=== PATIENT | male | born 1970 | race Caucasian/White ===

== ENCOUNTER → 2019-12-22 08:26 | Outpatient (CLI) | payer MEDICAID | END | disposition home or self-care (01) | LOC: D.NM 08:26 | PROVIDERS: ATTEND Internal Medicine Gastroenterology | DX: R10.11 Right upper quadrant pain (principal) ==

== ENCOUNTER → 2020-01-27 14:18 | Outpatient (CLI) | payer MEDICAID | END | disposition home or self-care (01) | LOC: D.CT 14:18 | PROVIDERS: ATTEND Internal Medicine Hematology & Oncology | DX: C18.7 Malignant neoplasm of sigmoid colon (principal); R10.11 Right upper quadrant pain ==

== ENCOUNTER 2020-02-01 07:41 | Inpatient (IN) | payer MEDICAID ==
[~2020-02-01] VITALS: Ht 190.5 cm; Wt 109.8 kg
[2020-02-01] MEDS ORDERED: GLUCOPHAGE1000 MG PO (10:05)
[2020-02-01] MEDS ORDERED: PRAVACHOL20 MG PO (10:06)
[2020-02-01] MEDS ORDERED: NEURONTIN600 MG PO (10:06)
[2020-02-01] MEDS ORDERED: HYDROCODON-ACE1 EA10 PO (10:06)
[2020-02-01] MEDS ORDERED: AMBIEN10 MG PO (10:07)
[2020-02-01] MEDS ORDERED: GLUCOTROL 5 MG T5 MG PO (10:07)
[2020-02-01] MEDS ORDERED: OMEPRAZOLE20 M1 PO (10:07)
[2020-02-01] MEDS ORDERED: CYCLOBENZAPRINE10 MG PO (10:08)
[2020-02-01] MEDS ORDERED: KLONOPIN1 MG PO (10:09)
[2020-02-03] VITALS (8 sets, daily range): BP systolic 107–139; BP diastolic 63–75; BMI 29.9; BMI 30.3
[2020-02-03 09:32] LABS: HEMATOCRIT 46.1 % (42.0-54.0); HEMOGLOBIN 16.2 g/dL (13.5-17.5); LYMPHOCYTES 26.1 % (15-50); MCH 29.9 pg (26.0-34.0); MCHC 35.1 g/dL (31.0-37.0); MCV 85.1 fL (80.0-100.0); MEAN PLATELET VOLUME 7.7 fL (7.4-10.4); NEUTROPHILS 63.4 % (40-80); PLATELET COUNT 197 10x3/uL (130-400); RBC 5.42 10x6/uL (4.20-6.10); RDW 13.1 % (11.5-14.5); WBC 4.9 10x3/uL (4.8-10.8)
[2020-02-03 09:45] LABS: ANION GAP 10.6 mmol/L (8-16); CALCIUM 9.3 mg/dL (8.5-10.1); CARBON DIOXIDE 30.2 mmol/L (21.0-32.0); CREATININE - SERUM 1.2 mg/dL (0.6-1.3); POTASSIUM - SERUM 4.8 mmol/L (3.5-5.1)
[2020-02-03 10:36] LABS: APTT 28.8 SECONDS (22.8-39.4); INR 1.04 (0.85-1.17); PROTIME 13.6 SECONDS (11.6-15.0)
[2020-02-03] MEDS ORDERED: FLAGYL500 MG (10:46)
[2020-02-03] MEDS ORDERED: NEOMYCIN SULFA500 MG (10:46)
[2020-02-03] MEDS ORDERED: AMOXICILLIN500 M1 (10:47)
--- NOTE | 2020-02-03 16:23 | NUR ---
1624 OPA DISCONTINUED. PATIENT AROUSES SLIGHTLY. MAINTAINING OPEN AIRWAY
--- NOTE | 2020-02-03 17:32 | NUR ---
PT ARRIVES TO ROOM VIA BED ESCORTED BY RECOVERY ROOM STAFF. PT IS SLEEPY AND AROUSES TO VOICE BUT DOES NOT ANSWER ALL QUESTIONS APPROPRIATELY. PT IS ORIENTED TO SELF/PLACE/SITUATION. PT STATES THAT HE HAS FAMILY IN THE HOSPITAL, BUT NO FAMILY HAS BEEN FOUND AT THIS TIME. WILL COMPLETE ALL ADMISSION REQUIREMENTS THAT CAN BE COMPLETED AT THIS TIME. VSS. SEE FLOWSHEET. ALL FALL PRECAUTIONS ARE IN PLACE EXCEPT FOR YELLOW GOWN. VALENTINO ALARM IS ON AND WORKING. INCENTIVE SPIROMETER AT BEDSIDE. CONTINUOUS PULSE OX IN PLACE AND MONITORING. EPIDURAL INPLACE AND INFUSING WITHOUT DIFFICULTY. BED IS IN THE LOWEST POSITION. CALL LIGHT AND BEDSIDE TABLE ARE WITHIN REACH. SIDE RAILS X 2. PT DENIES FURTHER NEEDS. WILL CONT TO MONITOR AND AWAIT FAMILY TO COMPLETE ADMISSION REQUIREMENTS.
[2020-02-03 18:38] LABS: BASOPHILS 0 % (0-2); EOSINOPHILS 0.1 % (0-7); HEMATOCRIT 40.3 % (42.0-54.0); HEMOGLOBIN 14.2 g/dL (13.5-17.5); IMMATURE GRANULOCYTES 0.1 % (0-5); LYMPHOCYTES 4.5 % (15-50); MCH 30.5 pg (26.0-34.0); MCHC 35.2 g/dL (31.0-37.0); MCV 86.7 fL (80.0-100.0); MEAN PLATELET VOLUME 8.3 fL (7.4-10.4); MONOCYTES 5.6 % (2-11); NEUTROPHILS 89.7 % (40-80); RBC 4.65 10x6/uL (4.20-6.10); RDW 12.6 % (11.5-14.5)
[2020-02-03 18:53] LABS: PLATELET COUNT 151 10x3/uL (130-400)
[2020-02-03 19:04] LABS: ALBUMIN 3.6 g/dL (3.4-5.0); ALKALINE PHOSPHATASE 49 U/L (30-120); ALT (SGPT) 37 U/L (10-68); BILIRUBIN - TOTAL 0.76 mg/dL (0.2-1.3); CALC OSMOLALITY 277 mosm/kg (275-300); CALCIUM 8.2 mg/dL (8.5-10.1); CARBON DIOXIDE 24.9 mmol/L (21.0-32.0); CHLORIDE - SERUM 107 mmol/L (98-107); GLUCOSE 123 mg/dL (74-106); MAGNESIUM - SERUM 1.7 mg/dL (1.8-2.4); PHOSPHOROUS 3.8 mg/dL (2.5-4.9); POTASSIUM - SERUM 4.4 mmol/L (3.5-5.1); PROTEIN - SERUM 6.6 g/dL (6.4-8.2); SODIUM 140 mmol/L (136-145); UREA NITROGEN 8 mg/dL (7-18); eGFR NON AFRICAN AMERICAN 84 mL/min (90-120)
--- NOTE | 2020-02-03 19:05 | NUR ---
PATIENT ALERT AND ORIENTED. HOB ELEVATED 40 DEGREE ANGLE. PATIENT HAS AN INTRACATHETER EPIDURAL THAT IS ON AND INFUSING. PATIENT STATES PAIN IS CURRENTLY 5/10. PATIENT STATES THAT INCISION PAIN IS "OKAY" BUT THAT HE SUFFERS FROM CHRONIC BACK PAIN AND THAT'S THE MAIN THING THAT IS STARTING TO BOTHER HIM AT THIS TIME. CONTINUOUS MONITORING IN PLACE. PATIENT WEARING 2L NC. HAS LEFT HAND IV THAT IS INFUSING NS @ 100. WEAVER CATHETER DRAINING YELLOW URINE. CALL LIGHT IN REACH. CPOC.
--- NOTE | 2020-02-03 23:51 | NUR ---
PAGED ANESTHESIA TO ASK ABOUT PAIN MEDICINE. PATIENT COMPLAINING OF BACK PAIN, NOT INCISION PAIN. ORDER STATES NO NARCOTICS AT THIS TIME DUE TO EPIDURAL BUT PATIENT COMPLAINING OF BACK PAIN
--- NOTE | 2020-02-04 00:20 | NUR ---
RECEIVED RETURN CALLED FROM LUIS MANUEL PRITCHETT CRNA. RECEIVED ORDER THAT IT IS OKAY TO ADMINISTER OXYCODONE THAT IS ON EMAR.
[2020-02-04 00:35] VITALS: BP 118/68
--- NOTE | 2020-02-04 03:18 | NUR ---
I have reviewed this patient and I concur with the Shift Assessment completed by the Licensed Practical Nurse today this shift.
[2020-02-04 04:55] VITALS: BP 118/64
[2020-02-04 04:57] LABS: BASOPHILS 0.2 % (0-2); EOSINOPHILS 0.2 % (0-7); HEMATOCRIT 37.5 % (42.0-54.0); HEMOGLOBIN 13.2 g/dL (13.5-17.5); IMMATURE GRANULOCYTES 0.2 % (0-5); LYMPHOCYTES 18.2 % (15-50); MCH 30.5 pg (26.0-34.0); MCHC 35.2 g/dL (31.0-37.0); MCV 86.6 fL (80.0-100.0); MEAN PLATELET VOLUME 8.1 fL (7.4-10.4); MONOCYTES 13.5 % (2-11); NEUTROPHILS 67.7 % (40-80); PLATELET COUNT 147 10x3/uL (130-400); RBC 4.33 10x6/uL (4.20-6.10); RDW 12.6 % (11.5-14.5)
[2020-02-04 05:18] LABS: CALC OSMOLALITY 275 mosm/kg (275-300); CALCIUM 7.9 mg/dL (8.5-10.1); CARBON DIOXIDE 27.3 mmol/L (21.0-32.0); CHLORIDE - SERUM 104 mmol/L (98-107); CREATININE - SERUM 1.1 mg/dL (0.6-1.3); GLUCOSE 100 mg/dL (74-106); MAGNESIUM - SERUM 1.7 mg/dL (1.8-2.4); POTASSIUM - SERUM 4.2 mmol/L (3.5-5.1); SODIUM 139 mmol/L (136-145); UREA NITROGEN 8 mg/dL (7-18); eGFR NON AFRICAN AMERICAN 75 mL/min (90-120)
--- NOTE | 2020-02-04 07:10 | NUR ---
PT RESTING IN BED. NO SIGNS OF DISTRESS. IV TO LEFT HAND PATENT NO REDNESS OR TENDERNESS. ON 2L NC. HAS EPIDURAL PATENT. INCISION TO ABDOMEN DRESSING CLEAN AND INTACT. COMPLIANS OF HEADACHE. MEDICATIONS GIVEN. HAS WEAVER NO KINKS PATENT. DENIES ANY FURTHER NEED AT THIS TIME. CALL LIGHT IN REACH. BED LOW POSITION. NO FAMILY AT BEDSIDE AT THIS TIME.
[2020-02-04 09:52] VITALS: BP 108/72
[2020-02-04 12:14] LABS: BILIRUBIN NEGATIVE (NEGATIVE); GLUCOSE NEGATIVE (NEGATIVE); KETONE NEGATIVE (NEGATIVE); NITRITE NEGATIVE (NEGATIVE); SPECIFIC GRAVITY 1.005 (1.005-1.020); UROBILINOGEN NORMAL (NORMAL)
--- NOTE | 2020-02-04 14:00 | NUR ---
I have reviewed this patient and I concur with the Shift Assessment completed by the Licensed Practical Nurse today this shift.
[2020-02-04 14:10] VITALS: Ht 190.5 cm; Wt 109.8 kg
[2020-02-04 14:24] VITALS: BP 110/68
[2020-02-04 16:56] VITALS: BP 104/61
[2020-02-04 20:00] VITALS: BP 117/60
--- NOTE | 2020-02-04 20:00 | NUR ---
PATIENT RESTING IN BED WITH EYES OPEN. NO S/S OF DISTRESS. C/O NOT BEING ABLE TO SLEEP, AND DOCTOR CAROL WAS CALLED. PATIENT HAS AN IV IN LEFT HAND NORMAL SALINE @ 100 ML/HR. IV IS PATENT WITHOUT REDNESS, SWELLING, OR TENDERNESS. PATIENT HAS 2L OF O2 PRN AND IS ON CONTINUOUS O2 MONIORING. PATIENT IS POST OP DAY 1 WITH A MIDLINE INCISION AND 2 LAP SITES. ALL DRESSINGS ARE C/D/I. PATIENT HAS EPIDURAL, DRESING IS C/D/I. PATIENT HAS A WEAVER. CALL LIGHT IN PLACE. WILL CONTINUE TO MONITOR.
--- NOTE | 2020-02-04 20:50 | NUR ---
PATIENT HAS TAKEN OUT EPIDURAL, AND ANET[facility] WAS CALLED. DRESSING IS STILL INTACT AND PATIENT IS NOW LAYING ON LEFT SIDE. CALL LIGHT IN PLACE. WILL CONTINUE TO MONITOR.
--- NOTE | 2020-02-04 21:20 | NUR ---
EPIDURAL WAS TAKEN OUT BY ANETHS[facility]. CATHETER TIP IN PLACE. DOCTOR CAROL WAS CALLED AND MORPHINE BLOW MOLD TECHNICIAN WAS ORDERED AND PUT IN PLACE. CALL LIGHT IN PLACE. WILL CONTINUE TO MONITOR.
[2020-02-05] VITALS: BP 113/71
--- NOTE | 2020-02-05 03:00 | NUR ---
I have reviewed this patient and I concur with the Shift Assessment completed by the Licensed Practical Nurse today this shift.
[2020-02-05 04:00] VITALS: BP 115/70
[2020-02-05 06:40] LABS: BASOPHILS 0.2 % (0-2); EOSINOPHILS 2.1 % (0-7); HEMATOCRIT 34.8 % (42.0-54.0); IMMATURE GRANULOCYTES 0.2 % (0-5); LYMPHOCYTES 27.9 % (15-50); MCH 30.1 pg (26.0-34.0); MCHC 34.5 g/dL (31.0-37.0); MCV 87.2 fL (80.0-100.0); MEAN PLATELET VOLUME 8.3 fL (7.4-10.4); MONOCYTES 11.3 % (2-11); NEUTROPHILS 58.3 % (40-80); PLATELET COUNT 147 10x3/uL (130-400); RBC 3.99 10x6/uL (4.20-6.10); RDW 12.6 % (11.5-14.5); WBC 4.8 10x3/uL (4.8-10.8)
[2020-02-05 07:08] LABS: CALC OSMOLALITY 265 mosm/kg (275-300); CALCIUM 8.1 mg/dL (8.5-10.1); CARBON DIOXIDE 26.9 mmol/L (21.0-32.0); CHLORIDE - SERUM 101 mmol/L (98-107); GLUCOSE 91 mg/dL (74-106); MAGNESIUM - SERUM 1.9 mg/dL (1.8-2.4); PHOSPHOROUS 2.8 mg/dL (2.5-4.9); POTASSIUM - SERUM 3.6 mmol/L (3.5-5.1); SODIUM 134 mmol/L (136-145); UREA NITROGEN 8 mg/dL (7-18); eGFR NON AFRICAN AMERICAN 84 mL/min (90-120)
[2020-02-05 08:38] VITALS: BP 114/73
[2020-02-05 12:33] VITALS: BP 112/71
[2020-02-05 17:07] VITALS: BP 100/62
--- NOTE | 2020-02-05 19:05 | NUR ---
PATIENT ALERT AND ORIENTED. VISITNG FAMILY IN ROOM. DENIES NEEDS AT THIS TIME. CALL LIGHT IN REACH. CPOC.
[2020-02-05 20:00] VITALS: BP 136/88
[2020-02-06] VITALS: BP 107/56
--- NOTE | 2020-02-06 00:15 | NUR ---
PATIENT HAD BOWEL MOVEMENT. BRIGHT RED BLOOD NOTED. PATIENT STATES THAT THIS IS "NORMAL" FOR HIM DUE TO EXTERNAL HEMORRHOIDS. PATIENT STATES PAIN MEDICATION IS EFFECTIVE AT THIS TIME. PATIENT STATES THAT BOWEL MOVEMENT WAS SMALL BUT EASY TO PASS WITH NO EXCESSIVE STRAINING. DENIES FURTHER NEEDS AT THIS TIME. CPOC.
--- NOTE | 2020-02-06 01:47 | NUR ---
RESTING WITH NO SIGNS OR SYMPTOMS OF DISCOMFORT AT THIS TIME. CALL LIGHT IN REACH. CPOC.
--- NOTE | 2020-02-06 01:49 | NUR ---
I have reviewed this patient and I concur with the Shift Assessment completed by the Licensed Practical Nurse today this shift.
--- NOTE | 2020-02-06 03:19 | NUR ---
DC'D IV TO THE LEFT HAND DUE TO NO LONGER PATENT. RESITED IN THE RIGHT AC. CHANGED OUT TUBING PER PROTOCAL. CPOC.
[2020-02-06 04:00] VITALS: BP 117/66
[2020-02-06 04:46] LABS: BASOPHILS 0.2 % (0-2); EOSINOPHILS 4.2 % (0-7); HEMATOCRIT 32.3 % (42.0-54.0); HEMOGLOBIN 11.2 g/dL (13.5-17.5); IMMATURE GRANULOCYTES 0.2 % (0-5); LYMPHOCYTES 31.4 % (15-50); MCH 29.9 pg (26.0-34.0); MCHC 34.7 g/dL (31.0-37.0); MCV 86.4 fL (80.0-100.0); MEAN PLATELET VOLUME 8.2 fL (7.4-10.4); MONOCYTES 11.5 % (2-11); NEUTROPHILS 52.5 % (40-80); PLATELET COUNT 140 10x3/uL (130-400); RBC 3.74 10x6/uL (4.20-6.10); RDW 12.6 % (11.5-14.5); WBC 4.3 10x3/uL (4.8-10.8)
[2020-02-06 05:36] LABS: CALC OSMOLALITY 275 mosm/kg (275-300); CARBON DIOXIDE 27.5 mmol/L (21.0-32.0); CHLORIDE - SERUM 106 mmol/L (98-107); GLUCOSE 96 mg/dL (74-106); MAGNESIUM - SERUM 1.8 mg/dL (1.8-2.4); PHOSPHOROUS 3.3 mg/dL (2.5-4.9); SODIUM 139 mmol/L (136-145); UREA NITROGEN 8 mg/dL (7-18); eGFR NON AFRICAN AMERICAN 84 mL/min (90-120)
--- NOTE | 2020-02-06 08:39 | NUR ---
PATIENT STATES BM LAST NIGHT AND GAS. REQUESTED AND RECIEVED A POPSICLE. CL IN REACH. WCTM
[2020-02-06 08:56] VITALS: BP 116/65
--- NOTE | 2020-02-06 13:15 | MORECARE ---
CASE MANAGEMENT DISCHARGE SUMMARY PATIENT: DELANO ATKINSON UNIT: [id number] ADM DATE: 02/03/20 AGE: 49 : 70 SEX: M ROOM/BED: D.2206 AUTHOR: KENNET[place]OC PHYSICIAN: REFERRING PHYSICIAN: DARIO HOPPER MD DATE OF SERVICE: 02/06/20 Discharge Plan Patient Name: DELANO ATKINSON Facility: [facility]:[place] : 1970 Planned Disposition: Home or Self Care Anticipated Discharge Date: Discharge Date: Expected LOS: Initial Reviewer: [email or web address] Initial Review Date: 02/03/2020 Generated: 02/06/20 2:15 pm Comments DCP- Discharge Planning Updated by [email or web address]: Angelic Martinez on 02/06/20 12:[address] Patient Name: DELANO ATKINSON Admission Status: Elective Accout number: [id number] Admission Date: 02-03-2020 : 1970 Admission Diagnosis: Attending: DARIO HOPPER Current LOS: 3 Anticipated DC Date: Planned Disposition: Home or Self Care Primary Insurance: MEDICAID [place] Discharge Planning Comments: CM met with patient to complete initial dc planning assessment. CM educated patient on the CM role and verbal consent given by patient to complete assessment. Patient lives at home with his parents where he is independent with his care. At discharge patient plans to return home and feels this is a safe discharge. CM discussed availability of home health, rehab services, and medical equipment. Patient denied known discharge needs at this time. CM will continue to follow and will assist as needed with dc plans/needs. Field Technical Support Consultant: Angelic Martinez DCPIA - Discharge Planning Initial Assessment Updated by [id number]: Angelic Martinez on 02/06/20 1:11 pm * Is the patient Alert and Oriented? Yes * How many steps to enter\exit or inside your home? * PCP [facility] * Pharmacy [facility] * Preadmission Environment Home with Family * ADLs Independent * Equipment None * List name and contact numbers for known caregivers / representatives who currently or will assist patient after discharge: LÁZARO ORR [phone] * Verbal permission to speak to the caregivers and representatives has been obtained from the patient. N/A * Community resources currently utilized None * Additional services required to return to the preadmission environment? No * Can the patient safely return to the preadmission environment? Yes * Has this patient been hospitalized within the prior 30 days at any hospital? No Patient Name: DELANO ATKINSON Page [id number] at 1315 All edits/amendments must be made on the electronic document DICTATION DATE: 02/06/201314 SOUND EFFECTS SUPERVISOR: ALICIA 02/06/20 1315 RPT#: [id number] DC DATE: STATUS: ADM IN [facility] [address] [place] [address] END OF REPORT
[2020-02-06 13:24] VITALS: BP 117/86
--- NOTE | 2020-02-06 15:21 | NUR ---
PATIENT SL AT THIS TIME BECAUSE HE WANTS A NAP. IV THERAPY WAS MAKING A "CLICKING NOISE" CL IN REACH. TM
[2020-02-06 17:28] VITALS: BP 138/60
--- NOTE | 2020-02-06 19:00 | NUR ---
BEDSIDE REPORT RECEIVED AND CARE OF PT ASSUMED. PT LYING IN HIGH NICOL[place]'S POSTION WATCHING TV. IV TO RIGHT AC SALINE LOCKED. WILL MONITOR FOR NEEDS.
[2020-02-06 20:00] VITALS: BP 125/68
--- NOTE | 2020-02-06 20:45 | NUR ---
HS MEDICATIONS GIVEN. WILL CONTINUE TO MONITOR FOR NEEDS.
--- NOTE | 2020-02-06 20:50 | NUR ---
PAGED DR MEDINA PER PT REQUEST FOR AMBIEN 10 MG PO FOR SLEEP...PT TAKES THIS AT HOME.
--- NOTE | 2020-02-06 22:05 | NUR ---
GAVE AMBIEN 10 MG PO PER NEW ORDER. WILL CONTINUE TO MONITOR FOR NEEDS.
[2020-02-07] VITALS: BP 140/81
[2020-02-07 04:00] VITALS: BP 133/78
--- NOTE | 2020-02-07 04:33 | NUR ---
GAVE NORCO PO PER REQUEST FOR PAIN.
[2020-02-07 06:33] LABS: HEMATOCRIT 32.4 % (42.0-54.0); HEMOGLOBIN 11.7 g/dL (13.5-17.5); MCH 30.2 pg (26.0-34.0); MCHC 36.1 g/dL (31.0-37.0); PLATELET COUNT 156 10x3/uL (130-400); RBC 3.87 10x6/uL (4.20-6.10); RDW 12.4 % (11.5-14.5); WBC 4.6 10x3/uL (4.8-10.8)
[2020-02-07 06:37] LABS: MCV 83.7 fL (80.0-100.0)
[2020-02-07 07:10] LABS: CALC OSMOLALITY 275 mosm/kg (275-300); CALCIUM 8.3 mg/dL (8.5-10.1); CARBON DIOXIDE 25.1 mmol/L (21.0-32.0); CHLORIDE - SERUM 104 mmol/L (98-107); CREATININE - SERUM 0.8 mg/dL (0.6-1.3); GLUCOSE 92 mg/dL (74-106); MAGNESIUM - SERUM 1.7 mg/dL (1.8-2.4); PHOSPHOROUS 3.5 mg/dL (2.5-4.9); POTASSIUM - SERUM 3.7 mmol/L (3.5-5.1); SODIUM 139 mmol/L (136-145); UREA NITROGEN 7 mg/dL (7-18); eGFR NON AFRICAN AMERICAN > 90 mL/min (90-120)
[2020-02-07 09:12] LABS: EOSINOPHILS 7 % (0-7); LYMPHOCYTES 23 % (15-50); MONOCYTES 11 % (2-11); NEUTROPHILS 58 % (40-80); PLATELET ESTIMATE NORMAL
--- NOTE | 2020-02-07 09:56 | NUR ---
PT ALERT X 4. BREATH SOUNDS CLEAR BILAT. IV TO RIGHT AC, PATENT, DRESSING CDI. PT REPORTING PAIN OF 6/10, WILL MONITOR. INCISION TO LOWER ABDOMEN CDI. BED LOW, CALL LIGHT IN REACH. NO OTHER NEEDS AT THIS TIME.
[2020-02-07 10:07] VITALS: BP 133/74
--- NOTE | 2020-02-07 14:24 | OP ---
PATIENT NAME: DELANO ATKINSON MEDICAL RECORD: [id number] :[birth year] LOCATION:D.MS [id number] ADMISSION DATE:02/03/20 SURGEON: DARIO HOPPER MD DATE OF OPERATION: 02/03/2020 PREOPERATIVE DIAGNOSIS: Sigmoid colon cancer, tattooed. POSTOPERATIVE DIAGNOSES: Sigmoid colon cancer, tattooed. PROCEDURE: 1. Hand-assisted laparoscopic surgery -- sigmoid colectomy, with takedown of the splenic flexure. 2. Incidental appendectomy. SURGEON: Dario Hopper MD EXPORT FREIGHT MANAGER: None. BLOOD LOSS: 100 cc. ANESTHESIA: General. COMPLICATIONS: None. The risks, possible complications, and alternatives to the procedure were explained to the patient. He elects to proceed. The discussion specifically included, but was not limited to, bleeding requiring emergency reoperation, infection, intestinal injury, and colostomy formation. The indication for the incidental appendectomy is to avoid diagnostic confusion in the future should the patient have a recurrence or persistence of abdominal pain. OPERATIVE PROCEDURE: The patient was conveyed to the operating room electively on 02/03/2020. General anesthesia was induced by the anesthesia staff. The abdomen was sterilely prepped and draped. A small skin mukul was accomplished in the left upper quadrant. A Veress needle was inserted through the skin mukul into the peritoneal cavity. CO2 insufflation was begun. Once a sufficient pneumoperitoneum had been achieved, a 5-mm trocar was inserted through an incision in the epigastrium. Under direct internal vision utilizing a television camera, an incision was accomplished in the umbilicus and a 5-mm trocar was inserted there through a umbilical hernia defect. Another 5-mm trocar was inserted in the suprapubic area. During insertion of the Veress needle and all trocars, there appeared to have been no injury to the bowels, any intraperitoneal or retroperitoneal structures. We then airplaned the patient to the right. There were some adhesions of the sigmoid colon to the abdominal side wall and right lower quadrant. These were taken down utilizing the laparoscopic EnSeal device. I grasped the colon and moved it medially. I then incised along the left white line of Toldt and through some blunt dissection, I was able to mobilize the descending colon medially. I took down the lienocolic ligament with the laparoscopic EnSeal device. I was then able to completely release the splenic flexure and bring it down caudad. Once I was satisfied with my dissection of the splenic flexure and the descending colon and sigmoid colon, I elected to place the Lap Disc device. OPERATIVE REPORT [id number] DELANO ATKINSON A transverse incision was accomplished in the suprapubic area. Sharp dissection was carried down through skin and subcutaneous tissue as well as Carlos fascia. The anterior fascia was incised transversely. I then the rectus muscles. Stay sutures of #1 Vicryl were placed on the peritoneum on the right and the left. I incised through the peritoneum. I then placed the Camron retractor in the peritoneal defect. I then placed my hand through the Camron retractor and I was able to do some more blunt dissection. I incised down along both rectal stalks. I entered the retroperitoneum. I identified both ureters, which were protected throughout the operation. I chose the proximal extent of my resection to be the junction of the descending sigmoid colons. The distal extent of the resection was going to be at the junction of the rectum and sigmoid colon. Windows were created in the mesentery at both sites. I then stapled across the bowel at both sites with a LUANNE-75 stapler. The interpose mesentery was taken down with the Super Jaw EnSeal device. I then opened up the specimen on the back table and grossly there were free margins. I then rescrubbed and regowned, and entered the operative theater again. I was able to mobilize appendix. A window was created in the mesoappendix. I took down the mesoappendix with the Super Jaw EnSeal device. I then stapled across the tip of the cecum with a LUANNE-75 stapler. The appendix was sent as a separate specimen. I then placed the descending colon and the rectum side by side suturing their antimesenteric borders together with 3-0 Vicryls. A small proctotomy and small colotomy were accomplished. Anvils of the LUANNE-75 stapler were advanced and then fired. The resulting colorectal defect was closed with single firing of the TA 60 stapler. I then oversewed the staple line with imbricating 3-0 Vicryl sutures. I then irrigated and aspirated. There was no bleeding. I ensured the small bowel was not twisted on its mesentery. The uppermost trocar site was closed with a single intracuticular 3-0 Vicryl suture. The umbilical hernia defect was closed with a running 0 Vicryl suture. The skin at this site was closed with interrupted 4-0 Vicryl Rapide sutures. At the lower incision, I then reperitonealized with a running #1 Vicryl. The rectus muscles were approximated in the midline with interrupted horizontal mattress #1 Vicryls. The anterior fascia was approximated with a running looped #1 PDS from the right to left. Carlos fascia was approximated with interrupted 3-0 Vicryls. The subdermis was approximated with interrupted 3-0 Vicryls. The skin was approximated with a running intracuticular 3-0 Vicryl. Benzoin and Steri-Strips were applied. The patient was then extubated and conveyed to post-anesthesia care unit where he was in stable condition. TRANSINT:[id number] Voice Confirmation ID: [id number] DOCUMENT ID: [id number] OPERATIVE REPORT [id number] DELANO ATKINOSN, DARIO BURGER at 1424 CC: DANELLE WADDELL and ANGEL KRUSE DO [id number] DICTATION DATE: 02/03/20 1748 WELDER ASSISTANT: 02/04/20 0016 ADM IN [facility] [address] [place] [address]
[2020-02-07 14:39] VITALS: BP 139/84
[2020-02-07 17:25] VITALS: BP 143/91
[2020-02-07] MEDS ORDERED: HYDROCODON-ACE1 EA10 PO (17:35)
[2020-02-07] MEDS ORDERED: COLACE100 MG PO (17:35)
== END 2020-02-07 19:15 | disposition home or self-care (01) | DRG 330 ==
LOC: D.SDCHOLD 02-03 09:11 → D.MS 02-03 09:11 → D.SDCHOLD 02-03 11:30 → D.MS 02-03 16:21
PROVIDERS: Anesthesiology; Emergency Medicine; Family Medicine; ADMIT Surgery; ATTEND Surgery
PROC: 0DTJ0ZZ Resection of Appendix, Open Approach (ICD-10-PCS; 2020-02-03)
PROC: 0DTN0ZZ Resection of Sigmoid Colon, Open Approach (ICD-10-PCS; principal; 2020-02-03 11:30)
DX: C18.7 Malignant neoplasm of sigmoid colon (principal); K56.7 Ileus, unspecified; E83.42 Hypomagnesemia; E11.9 Type 2 diabetes mellitus without complications; G25.81 Restless legs syndrome; M19.90 Unspecified osteoarthritis, unspecified site; F41.9 Anxiety disorder, unspecified